=== PATIENT | female | born 2000 | race Caucasian/White ===

== ENCOUNTER 2020-01-10 09:42 | Day surgery (SDC) | payer OTHER ==
[2020-01-07 11:43] VITALS: BMI 29.7
[2020-01-10] MEDS ORDERED: ROPIVACAINE HCL 0.5% 30ML VIAL ONE (12:21)
[2020-01-10] MEDS ORDERED: MIDAZOLAM HCL 2 MG/2 ML SINGLE DOSE VIAL ONE (12:21)
--- NOTE | 2020-01-10 12:34 | HP ---
History & Physical Update - History History: No Change - Physical Physical: No Change - Assessment Assessment: No Change - Plan Plan: No Change
[2020-01-10] MEDS ORDERED: PROPOFOL 20 ML ONE ×3 (13:17)
[2020-01-10] MEDS ORDERED: oxyCODONE HCL 5 MG TABLET PO PRN ×2 (15:57)
[2020-01-10] MEDS ORDERED: ONDANSETRON 4 MG/2 ML VIAL IVPUSH PRN (15:57)
[2020-01-10] MEDS ORDERED: PROMETHAZINE HCL 25 MG/1 ML VIAL IVPUSH PRN (15:57)
[2020-01-10 17:17] VITALS: TEMP 98
--- NOTE | 2020-01-10 17:55 | OPR ---
Procedure: Left Shoulder- 1. Diagnostic arthroscopy. 2. Arthroscopic anterior capsular plication and labral repair (15366). Preoperative Diagnoses: Left Shoulder- 1. Anterior traumatic instability. 2. Bankart lesion. 3. Hill-Sachs lesion. Postoperative Diagnoses: Left Shoulder- 1. Anterior traumatic instability. 2. Bankart lesion. 3. Hill-Sachs lesion. Surgeon: William Dye DO Assistants: Pablito Napier DO Anesthesia: General anesthesia, IV regional with interscalene nerve block. Estimated Blood Loss: Minimal Drains: None Total IV Fluids: Per anesthesia record Specimens: None Implants: (3) MicroRapter Knotless PEEK Suture Anchors, single loaded with 1.5 UltraTape ([employer]). 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 Her symptoms, signs, and imaging were consistent with the above noted diagnoses. She ultimately elected to proceed with surgical intervention after discussion of the risks, benefits, alternatives. We discussed risks including but not limited to, bleeding, pain, infection, scarring, damage to neurovascular structures, blood clots, pulmonary embolus, need for additional surgery, incomplete relief of pain, and incomplete return of function. She expressed understanding and wished to proceed. She underwent preoperative medical evaluation clearance and optimization prior to surgery. Procedure Details: She was identified in the preoperative area. The left shoulder was marked as the operative site and consent was completed and confirmed. A member of the anesthesia team then performed an interscalene block. She was later transferred to the operating room and placed in supine position the operating room. General anesthesia was induced without difficulty. She was repositioned into the lateral decubitus position on a maguire bag with the operative side up. All potential pressure points were carefully padded. The neck was in neutral alignment. Antibiotics were given within 1 hour prior to surgical incision. The upper extremity was prepped and draped in standard sterile fashion. The arm was positioned using the Acufex positioning system, and 10 lbs was used to position the extremity in balanced suspension. A surgical time-out was performed identifying the correct patient, procedure, and site. Examination under anesthesia: Passive range of motion of the left shoulder showed forward elevation of 170, abduction 100, external rotation at side 60, SABER 90, SABIR 40. This was compared to her contralateral shoulder which shows forward elevation of 170, abduction 100 external rotation at side 60, SABER 90, SABIR 40, and internal rotation to her mid thoracic spine. There was grade 2+ anterior instability, grade 0 posterior instability, and no sulcus. Diagnostic arthroscopy: We began the procedure with the standard posterolateral portal, entered the glenohumeral joint, and an anterior portal was made within the rotator cuff interval under direct visualization with the assistance of a spinal needle. After this was done, we placed a cannula anteroinferiorly just superior to the subscapularis tendon. We used a switching stick followed by a metal trocar and a 8.5 mm ribbed cannula was placed. After this was done, we developed a anterior superolateral portal with the assistance of a spinal needle just anterior and lateral to the acromion. We used a switching stick to enter just posterior to the biceps tendon, and a 7 mm ribbed cannula was placed. A probe was used to assist with diagnostic arthroscopy and we visualized from both posteriorly and anteriorly. Evaluation of the glenohumeral joint showed mild to moderate synovitis anteriorly and superiorly. The superior labrum was intact. The anterior labrum showed a Bankart tear with mild glenoid bone loss. There was deficient capsulolabral tissue that was torn, and partially scarred to the medial aspect of the glenoid neck. The posterior labrum was probed and found to be intact. There were no loose bodies in the inferior pouch. There was no HAGL lesion. The biceps tendon was normal. The rotator cuff interval was normal. The axillary recess was empty. The subscapularis was probed and found to be intact. The articular surface of the supraspinatus was intact. The articular surface of the infraspinatus and teres minor tendons were intact. The glenoid and humeral head showed no significant chondral defects. There was a small Hill-Sachs lesion posteriorly. Arthroscopic anterior capsular plication and labral repair: We switched our arthroscope into the anterior superolateral portal. We began our capsular plication and anterior labral repair by first preparing the anterior glenoid bone. We used a rasp to free up the labrum inferiorly to about the 5:30 position. We rasped the medial anterior glenoid bone for a bony preparation to accept the labrum and capsule. We used the anteroinferior cannula to pass our sutures and place our anchors. When used a lasso device to pass through the anterior-inferior capsular tissue. A single 1.5mm UltraTape was shuttled through the capsuloabral tissue. The first anchor was placed at about the 5:30 o'clock position. This was done in such a way to plicate and bring superior and medial the capsular tissue that had fallen inferiorly and laterally. We placed this after drilling the glenoid bone just at the glenoid rim. The anchor was placed without difficulty. The initial anchor immediately tightened up the anterior- inferior aspect of the glenohumeral capsule. Of note, the previous drive- through sign was already eliminated from this plication stitch. We repeated these steps placing additional 1.5 mm UltraTape to capture the anterior capsular tissue with the anterior labrum. These were then placed into a additional Microrapter anchors at 4:30 o'clock, and 3:00 o'clock positions. Suture were cut flush with the glenoid face. This reapproximated the anterior labrum and capsular tissues nicely recreating anterior-inferior bumper and again rece ntering the humeral head well on the glenoid. Wound closure: The arthroscopic portal incisions were closed with 3-0 Nylon. The shoulder was sterilely dressed, placed in a shoulder immobilizer. Post-operative Details: I spoke with the family regarding the operation after surgery. Postoperative rehabilitation: Arthroscopic anterior capsular plication (Bankart) protocol. Attestation for or first assist registered nurse: Dr. Pablito Napier acted as the or first assist registered nurse. There was no qualified resident or physician assistant operations manager available to do so.
[2020-01-10 17:57] VITALS: BP 110/65; PULSE 72
--- OUTSIDE RECORDS SUMMARY | 2020-01-10 18:37 | XMS ---
:2000 Author Organization [facility] Support Name Relationship Address Phone JOHN PINTO SISTER [address] [place] [address] JAGDEEP, STUDENT Unavailable Unavailable Unavailable JAGDEEP Unavailable Unavailable Unavailable CYNTHIA PINTO FATHER [address] [place] [address] DEX PINTO MOTHER [address] [place] [address] Dex Pinto Unavailable [address] [facility], [place] [address] Re-disclosure Warning The records that you are about to access may contain information from federally- assisted alcohol or drug abuse programs. If such information is present, then the following federally mandated warning applies: This information has been disclosed to you from records protected by federal confidentiality rules (42 CFR part 2). The federal rules prohibit you from making any further disclosure of this information unless further disclosure is expressly permitted by the written consent of the person to whom it pertains or as otherwise permitted by 42 CFR part 2. A general authorization for the release of medical or other information is NOT sufficient for this purpose. The Federal rules restrict any use of the information to criminally investigate or prosecute any alcohol or drug abuse patient.The records that you are about to access may contain highly sensitive health information, the redisclosure of which is protected by Article 27-F of the [place] State Public Health law. If you continue you may haveaccess to information: Regarding HIV / AIDS; Provided by facilities licensed or operated by the [facility] Office of Mental Health; or Provided by the [facility] Office for People With Developmental Disabilities. If such information is present, then the following [facility] mandated warning applies: This information has been disclosed to you from confidential records which are protected by state law. State law prohibits you from making any further disclosure of this information without the specific written consent of the person to whom it pertains, or as otherwise permitted by law. Any unauthorized further disclosure in violation of state law may result in a fine or prison sentence or both. A general authorization for the release of medical or other information is NOT sufficient authorization for further disclosure. Insurance Providers Payer name Policy type Policy ID Covered Covered democrat's Policy P justus / Coverage democrat ID relationship to [place] Inf ormation type [place] [id number] [place] [id number] HMO Results ID Date Data Source [id number] 01/06/2020 03:23:00 PM EDT [facility] Name Value Range Interpretation Description Data Sup porting Code Source(s) Document(s ) SARS [facility] coronavirus 2 RNA This lab was ordered by [facility] and reported by [facility]. ID Date Data Source [id number] 12/23/2019 01:55:00 PM EDT [facility] Name Value Range Interpretation Description Data Sup porting Code Source(s) Document(s ) SARS [facility] coronavirus 2 RNA This lab was ordered by [facility] and reported by [facility]. ID Date Data Source [id number] 12/20/2019 02:00:00 PM EDT [facility] Name Value Range Interpretation Description Data Sup porting Code Source(s) Document(s ) SARS [facility] coronavirus 2 RNA This lab was ordered by [facility] and reported by [facility]. ID Date Data Source [id number] 10/19/2019 11:51:00 AM EDT [facility] Name Value Range Interpretation Code Description Data Mily rce(s) Supporting Document(s ) COV2 [facility] This lab was ordered by [facility] and reported by [facility] [place]. Procedure
--- NOTE | 2020-01-14 16:43 | PATH ---
Surgical Pathology Report Patient Name: NAIF CABRERA Med. Rec. #: [id number] /Age/Gender: 2000 (Age: 19) / F Account: [id number] Location: [facility] AM[facility] Taken: 01/10/2020 Received: 01/10/2020 Reported: 01/14/2020 Physicians: William Dye DO Specimen(s) Received LEFT SHOULDER SHAVINGS Clinical History Left shoulder instability Final Diagnosis SHOULDER SHAVINGS, LEFT, ARTHROSCOPY, BANKART REPAIR: FRAGMENTS OF BENIGN BONE, CARTILAGE, DENSE FIBROCONNECTIVE TISSUE, AND SYNOVIUM. Electronically Signed Natacha Waller M.D. Gross Description Received in formalin labeled "left shoulder shavings," is a 1.0 x 0.8 x 0.2 cm aggregate of pemberton soft tissue fragments. The formalin is filtered and the specimen is entirely submitted in one cassette. /01/13/2020 saudi/01/13/2020
== END 2020-01-10 18:18 | disposition home or self-care (01) ==
LOC: FASU 09:42
PROVIDERS: ATTEND Orthopaedic Surgery
PROC: 0RQK4ZZ Repair Left Shoulder Joint, Percutaneous Endoscopic Approach (ICD-10-PCS; principal; 2020-01-10 14:14)
DX: M24.112 Other articular cartilage disorders, left shoulder (principal); M25.312 Other instability, left shoulder; M65.812 Other synovitis and tenosynovitis, left shoulder
CPT/HCPCS: 84703; 88304-TC; 94760

== ENCOUNTER 2021-02-06 09:26 | Emergency (ER) | payer OTHER ==
[2021-02-06 09:43] VITALS: BP 115/76; PULSE 65; TEMP 98.6; BMI 30.9
== END 2021-02-06 10:45 | disposition home or self-care (01) ==
LOC: FER 09:26
DX: S13.4XXA Sprain of ligaments of cervical spine, initial encounter (principal); V88.2XXA Person injured in collision between car and pick-up truck or van, nontraffic, initial encounter
CPT/HCPCS: 72040-TC; 73030-TC-LT-FY; 99284-25